=== PATIENT | male | born 1975 | race Caucasian/White ===

== ENCOUNTER 2017-01-07 18:56 | Emergency (ER) | payer MEDICARE | END 2017-01-07 19:32 | disposition home or self-care (01) | LOC: ER 18:56 | DX: S91.011A Laceration without foreign body, right ankle, initial encounter (principal); L08.9 Local infection of the skin and subcutaneous tissue, unspecified; F17.210 Nicotine dependence, cigarettes, uncomplicated; Z88.5 Allergy status to narcotic agent; Z79.899 Other long term (current) drug therapy; W45.8XXA Other foreign body or object entering through skin, initial encounter ==